=== PATIENT | female | born 1990 | race Caucasian/White ===

== ENCOUNTER 2017-04-22 00:58 | Inpatient (IN) | payer OTHER ==
[~2017-04-22] VITALS: Ht 160 cm; Wt 90.3 kg
[2017-04-22] VITALS (12 sets, daily range): BP systolic 104–129; BP diastolic 63–81; PULSE 74–102; RESP 16–18; TEMP 98.1–99
[~2017-04-22 00:58] MED LIST: PREN1CAP PO
[2017-04-22] MEDS ORDERED: LACTATED RINGER'S 1000 ML INJ 1,000 ML IV PRN (01:31)
[2017-04-22] MEDS ORDERED: LACTATED RINGER'S 1000 ML INJ 1,000 ML IV SCH (01:31)
--- NOTE | 2017-04-22 01:31 | HHI.HP ---
HPI Chief Complaint Contractions Date Seen: Apr 22, 2017 Time Seen: 01:25 Travel History International Travel<30 Days: No Contact w/Intl Traveler<30Days: No Known Affected Area: No History of Present Illness HPI 26-year-old 39 weeks presents in active labor cervix 6 cm, membranes intact no bleeding, heart rate tracing is reactive and she is dante every 2 minutes Weeks Gestation: 39 Para: 2 : 3 History Obstetric History Obstetric History 2 vaginal deliveries Social History Alcohol Use: No Tobacco Use: No Substance Abuse: No Allergies-Medications (Allergen,Severity, Reaction): Coded Allergies: No Known Allergies (Unverified , 04/17/17) Home Meds Active Scripts Vit W/ Fe Polysacch C (Vitafol Ultra 29-0.6-0.4-200 mg) 1 Cap Cap, 1 CAP PO DAILY, #60 BOTTLE 5 Refills Prov:Heather Velez CNM [facility] 10/21/16 Vit W/ Fe Polysacch C (Vitafol Ultra 29-0.6-0.4-200 mg) 1 Cap Cap Prov:Heather Velez CNM [facility] 10/21/16 Review of Systems General / Constitutional: No: Fever, Weight Gain, Chills, Other Eyes: No: Diploplia, Blurred Vision, Visual changes, Pain, Photophobia HENT: No: Headaches, Vertigo, Lightheadedness Cardiovascular: No: Irregular Rhythm, Chest Pain or Discomfort, Palpitations, Tachycardia, Syncope, Varicosities, Edema, Cyanosis Respiratory: No: Cough, Short of Breath, Other Gastrointestinal: No: Nausea, Vomiting, Diarrhea Genitourinary: No: Decreased Urinary Output, Oliguria Musculoskeletal: No: Limited ROM, Weakness, Cramping, Edema, Pain Skin: No Rash, No Itching, No Dryness, No Lumps, No Change in Pigmentation, No Change in Nails, No Alopecia, No Lesions Neurologic: No: Weakness, Dizziness, Syncope, Focal Abnormalities, Coordination Problem, Headache, Slurred Speech, Seizures Psychiatric: No: Depression, Suicidal Ideations, Homicidal Ideation Endocrine: No: Heat Intolerance, Cold Intolerance, Polydipsia, Polyuria, Other Physical Exam Narrative GENERAL: Well-nourished, well-developed patient. SKIN: Warm and dry. HEAD: Normocephalic and atraumatic. EYES: No scleral icterus. No injection or drainage. ENT: No nasal drainage noted. Mucous membranes pink. Airway patent. NECK: Supple, trachea midline. No JVD. CARDIOVASCULAR: Regular rate and rhythm without murmurs, gallops, or rubs. RESPIRATORY: Breath sounds equal bilaterally. No accessory muscle use. BREASTS: Bilateral exam showed no masses , no retractions, no nipple discharge. ABDOMEN/GI: Abdomen soft, non-tender, bowel sounds present, no rebound, no guarding Gravid to [39-] weeks size Fundal Height: [39-] GENITOURINARY: External Genitalia: intact and normal in appearance BUS glands: [-] Cervix: [-] Dilatation: [6-7 cm-] Effacement: [90-] Station: [-0] Presentation: [vtx-] Membranes: [intact BBOW] Uterine Contractions: [q 2 min-] FHT's: Category: [-1] Baseline: [-133] Reactive: [-yes] Variability: [mod-] Decels: [0-] EXTREMITIES: No cyanosis or edema. BACK: Nontender without obvious deformity. No CVA tenderness. NEUROLOGICAL: Awake and alert. Motor and sensory grossly within normal limits. Five out of 5 muscle strength in all muscle groups. Normal speech. Caprini VTE Risk Assessment Caprini VTE Risk Assessment: No/Low Risk (score <= 1) Caprini Risk Assessment Model Point Value = 1 Point Value = 2 Point Value = 3 Point Value = 5 Age 41-60 Minor surgery BMI > 25 kg/m2 Swollen legs Varicose veins or History of unexplained or recurrent spontaneous Oral contraceptives or hormone replacement Sepsis (< 1 month) Serious lung disease, including pneumonia (< 1 month) Abnormal pulmonary function Acute myocardial infarction Congestive heart failure (< 1 month) History of inflammatory bowel disease Medical patient at bed rest Age 61-74 Arthroscopic surgery Major open surgery (> 45 min) Laparoscopic surgery (> 45 min) Malignancy Confined to bed (> 72 hours) Immobilizing plaster cast Central venous access Age >= 75 History of VTE Family history of VTE Factor V Leiden Prothrombin [id number] Lupus anticoagulant Anticardiolipin antibodies Elevated serum homocysteine Heparin-induced thrombocytopenia Other congenital or acquired thrombophilia Stroke (< 1 month) Elective arthroplasty Hip, pelvis, or leg fracture Acute spinal cord injury (< 1 month) Prophylaxis Regimen Total Risk Factor Score Risk Level Prophylaxis Regimen 0-1 Low Early ambulation 2 Moderate Order ONE of the following: *Sequential Compression Device (SCD) *Heparin 5000 units SQ BID 3-4 Higher Order ONE of the following medications: *Heparin 5000 units SQ TID *Enoxaparin/Lovenox 40 mg SQ daily (WT < 150 kg, CrCl > 30 mL/min) *Enoxaparin/Lovenox 30 mg SQ daily (WT < 150 kg, CrCl > 10-29 mL/min) *Enoxaparin/Lovenox 30 mg SQ BID (WT < 150 kg, CrCl > 30 mL/min) AND/OR *Sequential Compression Device (SCD) 5 or more Highest Order ONE of the following medications: *Heparin 5000 units SQ TID (Preferred with Epidurals) *Enoxaparin/Lovenox 40 mg SQ daily (WT < 150 kg, CrCl > 30 mL/min) *Enoxaparin/Lovenox 30 mg SQ daily (WT < 150 kg, CrCl > 10-29 mL/min) *Enoxaparin/Lovenox 30 mg SQ BID (WT < 150 kg, CrCl > 30 mL/min) AND *Sequential Compression Device (SCD) Data Data Orders Orders Ob (2e) Additional Admit Info (04/22/17 01:24) Assessment/Plan Assessment and Plan Patient is 26-year-old 39 weeks [facility] presents in active labor dante regularly cervix 6-7 cm, heart rate tracing is reactive. Membranes are intact. Plans admission the hospital manage labor accordingly and anticipate vaginal deliveries very soon Reji Brown II, MD Apr 22, 2017 01:31
[2017-04-22] MEDS ORDERED: fentaNYL 2MCG-BUPIV 0.125% INJ 100 ML ONE (01:38)
[2017-04-22 01:41] LABS: AUTOMATED NEUTROPHIL # 11.3 TH/MM3 (1.8-7.7); BASOPHIL # 0.1 TH/MM3 (0-0.2); BASOPHIL % 0.7 % (0.0-2.0); EOSINOPHIL # 0.2 TH/MM3 (0-0.4); EOSINOPHIL % 1.1 % (0.0-4.0); HEMATOCRIT 40.2 % (35.0-46.0); HEMO FLAGS DIFF FINAL; LYMPH % 12.4 % (9.0-44.0); LYMPHOCYTE # 1.8 TH/MM3 (1.0-4.8); MEAN CELL VOLUME 81.9 FL (80.0-100.0); MONO % 7.2 % (0.0-8.0); NEUT % 78.6 % (16.0-70.0); PLATELET COUNT 267 TH/MM3 (150-450); RED BLOOD COUNT 4.91 MIL/MM3 (4.00-5.30); RED CELL DISTRIBUTION WIDTH 14.3 % (11.6-17.2); WHITE BLOOD COUNT 14.3 TH/MM3 (4.0-11.0)
[2017-04-22] MEDS ORDERED: LIDOCAINE HCL 1% 50 ML VIAL INFIL PRN (01:45)
[2017-04-22] MEDS ORDERED: OXYTOCIN 30 UNITS-500ML PREMIX 500 ML IV ONE (01:45)
[2017-04-22] MEDS ORDERED: LIDOCAINE HCL 1% 50 ML VIAL I-DERMAL PRN (01:45)
[2017-04-22] MEDS ORDERED: MINERAL OIL 10 ML VIAL TOPICAL PRN (01:45)
[2017-04-22] MEDS ORDERED: SODIUM CHLORID 0.9% 500 ML INJ 500 ML IV PRN (01:45)
[2017-04-22] MEDS ORDERED: CITRIC ACID-SODIUM CITRATE LIQ 30 ML UDC PO SCH (01:45)
[2017-04-22 01:46] LABS: BLOOD, URINE MOD (NEG); COMMENT (UR) CULTURE INDICATED; CULTURE IF INDICATED CULTURE INDICATED; GLUCOSE,URINE NEG (NEG); KETONE, URINE NEG (NEG); NITRITE,URINE NEG (NEG); PH, URINE 7.5 (5.0-8.5); SQUAMOUS EPITHELIAL CELL URINE 25 /hpf (0-5); URINE COLOR YELLOW (YELLW/STRAW)
[2017-04-22] MEDS ORDERED: SODIUM CHLOR 0.9% 1000 ML INJ 1,000 ML IV PRN (01:51)
--- NOTE | 2017-04-22 02:08 | PD.OB.DELI ---
Weeks gestation: 39 Gest age assessed date: Apr 22, 2017 Gest age assessed time: 01:00 Pt started active labor?: Yes Active labor start date: Apr 21, 2017 Active labor start time: 23:00 Medical induction of labor?: No Artificial rupture of membrane: Yes Artificial ROM date: Apr 22, 2017 Artifical ROM time: 01:50 Anesthesia: None Episiotomy: None Vaginal Delivery: Normal Presentation: Occiput anterior Nuchal Cord: None Delayed cord clamping (45 sec): Yes Infant: Male Delivery date: Apr 22, 2017 Delivery time: 01:58 One Minute : 8 Five Minute : 9 Weight: 3520 gm Placenta: Spontaneous delivery, Intact Laceration: No lacerations Additional Information precipitous delivery no complication Reji Brown II, MD Apr 22, 2017 02:08
[2017-04-22] MEDS ORDERED: OXYTOCIN 30 UNITS-500ML PREMIX 500 ML IV SCH (02:15)
[2017-04-22] MEDS ORDERED: oxyCODONE/ACETAMINOPHEN 5 MG/325 MG TAB PO PRN (02:15)
[2017-04-22] MEDS ORDERED: DOCUSATE SODIUM 50 MG/SENNA 8.6 MG TAB PO PRN (02:15)
[2017-04-22] MEDS ORDERED: IBUPROFEN 600 MG TAB PO PRN (02:15)
[2017-04-22] MEDS ORDERED: SODIUM CHLORIDE 0.9% FLUSH 10 ML FLUSH IV FLUSH PRN (02:15)
[2017-04-22] MEDS ORDERED: ONDANSETRON ODT 4 MG TAB PO PRN (02:15)
[2017-04-22] MEDS ORDERED: ZOLPIDEM TARTRATE 5 MG TAB PO PRN (02:15)
[2017-04-22] MEDS ORDERED: WITCH HAZEL 50%/GLYCERIN 12.5% 40 PAD JAR TOPICAL PRN (02:15)
[2017-04-22] MEDS ORDERED: ALUMINUM/MAGNESIUM/SIMETH 30 ML CUP PO PRN (02:15)
[2017-04-22] MEDS ORDERED: ACETAMINOPHEN 325 MG TAB PO PRN (02:15)
[2017-04-22] MEDS ORDERED: BENZOCAINE 20% TOPICAL SPRAY 60 ML CAN TOPICAL PRN (02:15)
--- NOTE | 2017-04-22 08:40 | HHI.OB ---
Subjective Post Day: 0 Remarks day #0. AFVSS overnight. Pain minimal. Decreased lochia. Denies dysuria. Appetite good. No nausea or vomiting. + flatus. + bowel movement. Ambulating well. Denies calf pain, shortness of breath, or cough. Otherwise, she is doing well this morning and has no other complaints. Objective Vitals/I&O Vital Signs Date Time Temp Pulse Resp B/P (MAP) Pulse Ox O2 Delivery O2 Flow Rate FiO2 04/22/17 04:30 98.7 83 18 104/73 (83) 04/22/17 03:31 84 106/68 (81) 04/22/17 03:16 81 112/72 (85) 04/22/17 03:01 74 129/80 (96) 04/22/17 02:46 79 114/70 (85) 04/22/17 02:31 83 115/75 (88) 04/22/17 02:16 95 116/77 (90) 04/22/17 02:06 18 04/22/17 02:06 102 126/63 (84) 04/22/17 01:38 18 04/22/17 01:34 99.0 18 Objective Remarks GENERAL: Well-nourished, well-developed patient. CARDIOVASCULAR: Regular rate and rhythm without murmurs, gallops, or rubs. RESPIRATORY: Breath sounds equal bilaterally. No accessory muscle use. ABDOMEN/GI: Abdomen soft, non-tender. Fundus: Firm, non-tender at umbilicus. GENITOURINARY: Light to moderate bleeding. EXTREMITIES: No cyanosis or edema, non-tender, without signs of DVT. Medications and IVs Current Medications Medications (Trade) Dose Ordered Sig/Hiral Route Start Time Stop Time Status Last Admin (NS Flush) 2 ml BID IV FLUSH 04/22/17 09:00 (NS Flush) 2 ml UNSCH PRN IV FLUSH 04/22/17 02:15 (Tylenol) 650 mg Q4H PRN PO 04/22/17 02:15 (Motrin) 600 mg Q6H PRN PO 04/22/17 02:15 (Percocet 5-325 Mg) 1 tab Q4H PRN PO 04/22/17 02:15 (Americaine 20% Top Spr) 1 spray Q4H PRN TOPICAL 04/22/17 02:15 (Tucks Pads) 1 applic QID PRN TOPICAL 04/22/17 02:15 (Lilian-Colace) 2 tab Q12H PRN PO 04/22/17 02:15 (Ambien) 5 mg HS PRN PO 04/22/17 02:15 (M-M-R Ii Inj) 0.5 ml ONCE ONCE SQ 04/22/17 16:00 04/22/17 16:01 (Boostrix Inj) 0.5 ml ONCE ONCE IM 04/22/17 16:00 04/22/17 16:01 (Mag-Al Plus Susp Liq) 15 ml Q8H PRN PO 04/22/17 02:15 (Zofran Odt) 4 mg Q6H PRN PO 04/22/17 02:15 Assessment/Plan Assessment and Plan 26y/o who is PPD#0 s/p . -Continue routine care. -Percocet and Motrin PRN pain. -Encouraged OOB. Advised pelvic rest for 6 wks. -Will need a f/u appt. within 6 wks. -D/c in 1-2 more days. wdw OB attending Bridgett Martinez MD R1 Apr 22, 2017 08:40
[2017-04-22] MEDS ORDERED: SODIUM CHLORIDE 0.9% FLUSH 10 ML FLUSH IV FLUSH SCH (09:00)
[2017-04-22] MEDS ORDERED: DIPHTH/TETANUS/ACEL PERTUSSIS (BOOSTER) 0.5 ML VIAL/PFS IM ONE (16:00)
[2017-04-22] MEDS ORDERED: MEASLES, MUMPS, RUBELLA VACCINE 0.5 ML VIAL SQ ONE (16:00)
--- NOTE | 2017-04-23 08:47 | HHI.OB ---
Subjective Post Day: 1 Remarks day #1. AFVSS overnight. Pain minimal. Decreased lochia. Denies dysuria. No breast tenderness. She is feeding the baby via breast/bottle. Appetite good. No nausea or vomiting. Endorses flatus. No bowel movement. Ambulating well. Denies calf pain, shortness of breath, or cough. Otherwise, she is doing well this morning and has no other complaints. Objective Vitals/I&O Vital Signs Date Time Temp Pulse Resp B/P (MAP) Pulse Ox O2 Delivery O2 Flow Rate FiO2 04/22/17 22:00 98.2 04/22/17 15:00 98.3 86 16 114/80 (91) 04/22/17 09:00 98.1 95 18 115/81 (92) Objective Remarks GENERAL: Well-nourished, well-developed patient. CARDIOVASCULAR: Regular rate and rhythm without murmurs, gallops, or rubs. RESPIRATORY: Breath sounds equal bilaterally. No accessory muscle use. ABDOMEN/GI: Abdomen soft, non-tender. Fundus: Firm, non-tender at umbilicus. GENITOURINARY: Light to moderate bleeding. EXTREMITIES: No cyanosis or edema, non-tender, without signs of DVT. Medications and IVs Current Medications Medications (Trade) Dose Ordered Sig/Hiral Route Start Time Stop Time Status Last Admin (NS Flush) 2 ml BID IV FLUSH 04/22/17 09:00 (NS Flush) 2 ml UNSCH PRN IV FLUSH 04/22/17 02:15 (Tylenol) 650 mg Q4H PRN PO 04/22/17 02:15 (Motrin) 600 mg Q6H PRN PO 04/22/17 02:15 04/22/17 22:14 (Percocet 5-325 Mg) 1 tab Q4H PRN PO 04/22/17 02:15 (Americaine 20% Top Spr) 1 spray Q4H PRN TOPICAL 04/22/17 02:15 (Tucks Pads) 1 applic QID PRN TOPICAL 04/22/17 02:15 (Lilian-Colace) 2 tab Q12H PRN PO 04/22/17 02:15 04/22/17 22:14 (Ambien) 5 mg HS PRN PO 04/22/17 02:15 (Mag-Al Plus Susp Liq) 15 ml Q8H PRN PO 04/22/17 02:15 (Zofran Odt) 4 mg Q6H PRN PO 04/22/17 02:15 Assessment/Plan Assessment and Plan 26y/o who is PPD#1 s/p . -Continue routine care. -Percocet and Motrin PRN pain. -Encouraged OOB. Advised pelvic rest for 6 wks. -Will need a f/u appt. within 6 wks. -D/c today/tomorrow ld OB attending Randy Ireland MD, R2 Apr 23, 2017 08:47
[2017-04-23 09:48] VITALS: BP 108/77; PULSE 79; RESP 17; TEMP 97.6
[2017-04-23] MEDS ORDERED: SENN1TAB PO (11:22)
[2017-04-23] MEDS ORDERED: IBUP-232 PO (11:22)
--- NOTE | 2017-04-23 11:23 | HHI.DCPOC ---
Discharge Care Plan Diagnosis: (1) care following vaginal delivery Report Symptoms to Your Doctor -Temperature above 100.5 degrees -Redness, of incision or excessive or foul smelling drainage -Unusual pain or calf pain -Increased vaginal bleeding -Painful or difficulty urinating -Feelings of extreme sadness or anxiety after 2 weeks Goals to Promote Your Health * To prevent worsening of your condition and complications * To maintain your health at the optimal level Directions to Meet Your Goals Take your medications as prescribed Follow your dietary instruction Follow activity as directed Ensure plenty of rest for recovery Drink fluids for hydration Keep your appointments as scheduled Take your immunizations and boosters as scheduled If your symptoms worsen call your PCP, if no PCP go to Urgent Care Center or Emergency Room Smoking is Dangerous to Your Health. Avoid second hand smoke Call the 24-hour crisis hotline for domestic abuse at Randy Ireland MD, R2 Apr 23, 2017 11:22
== END 2017-04-23 13:29 | disposition home or self-care (01) | DRG 775 ==
LOC: HOBED 00:58 → H2EB 01:27 → H1EA 04:18
PROVIDERS: ADMIT Obstetrics & Gynecology Maternal & Fetal Medicine; ATTEND Obstetrics & Gynecology Maternal & Fetal Medicine
PROC: 10E0XZZ Delivery of Products of Conception, External Approach (ICD-10-PCS; principal; 2017-04-22)
DX: O62.3 Precipitate labor (principal); Z37.0 Single live birth; Z3A.39 39 weeks gestation of pregnancy
CPT/HCPCS: 59025; 81001; 85025; 86900; 86901; 87086; J2590

== ENCOUNTER → 2017-06-12 | Outpatient (CLI) | payer OTHER, MEDICAID ==
[~2017-06-12] MED LIST changes: +IBUP-232 PO; -PREN1CAP PO
[2017-06-12 11:09] LABS: AUTOMATED NEUTROPHIL # 5.7 TH/MM3 (1.8-7.7); BASOPHIL # 0.1 TH/MM3 (0-0.2); BASOPHIL % 0.9 % (0.0-2.0); EOSINOPHIL # 0.5 TH/MM3 (0-0.4); EOSINOPHIL % 5.9 % (0.0-4.0); HEMATOCRIT 39.4 % (35.0-46.0); HEMO FLAGS DIFF FINAL; LYMPH % 23.4 % (9.0-44.0); LYMPHOCYTE # 2.1 TH/MM3 (1.0-4.8); MEAN CELL VOLUME 81.9 FL (80.0-100.0); MEAN CORPUSCULAR HEMOGLOBIN 27.4 PG (27.0-34.0); MEAN CORPUSCULAR HGB CONC 33.5 % (32.0-36.0); NEUT % 62.8 % (16.0-70.0); PLATELET COUNT 366 TH/MM3 (150-450); RED BLOOD COUNT 4.81 MIL/MM3 (4.00-5.30); RED CELL DISTRIBUTION WIDTH 15.7 % (11.6-17.2); WHITE BLOOD COUNT 9.1 TH/MM3 (4.0-11.0)
[2017-06-12 11:19] LABS: ALT (GPT) 36 U/L (10-53); ANION GAP 7 MEQ/L (5-15); AST (GOT) 22 U/L (15-37); BICARBONATE 26.1 MEQ/L (21.0-32.0); BLOOD UREA NITROGEN 8 MG/DL (7-18); CHLORIDE 104 MEQ/L (98-107); GLOMERULAR FILTRATION RATE 147 ML/MIN (>89); GLUCOSE,FASTING 76 MG/DL (74-99); POTASSIUM 4.2 MEQ/L (3.5-5.1); SODIUM (NA) 137 MEQ/L (136-145)
[2017-06-12 11:24] LABS: ALKALINE PHOSPHATASE 113 U/L (45-117); TOTAL BILIRUBIN ADULT 0.3 MG/DL (0.2-1.0)
[2017-06-12 11:44] LABS: BHCG SCREEN QUALITATIVE LESS THAN 1 MIU/ML (0-5)
[2017-06-12 11:52] LABS: BACTERIA, URINE RARE /hpf; BLOOD, URINE NEG (NEG); COMMENT (UR) CULT NOT INDICATED; CULTURE IF INDICATED CULT NOT INDICATED; GLUCOSE,URINE NEG (NEG); KETONE, URINE NEG (NEG); MUCUS URINE FEW /lpf (OCC); NITRITE,URINE NEG (NEG); PH, URINE 6.5 (5.0-8.5); SQUAMOUS EPITHELIAL CELL URINE 3 /hpf (0-5); URINE COLOR YELLOW (YELLW/STRAW)
== END ==
LOC: CPRE 10:05
PROVIDERS: ATTEND Obstetrics & Gynecology Gynecology
DX: Z01.812 Encounter for preprocedural laboratory examination (principal); Z30.2 Encounter for sterilization
CPT/HCPCS: 36415; 80053; 81001; 84703; 85025